=== PATIENT | male | born 1985 | race African-American/Black ===

== ENCOUNTER 2017-01-20 15:40 | Inpatient (IN) | payer OTHER ==
--- NOTE | ~2017-01-20 | HP ---
Unit #: [id number] #: [id number] Patient: JUAN J CARLIN [id number] [address] [place], [place] [address] [id number] MR#: [id number] NAME: JUAN J CARLIN. ROOM: 310 Age: 31 Sex: M Admission Date: 01/20/2017 : 1985 Attending Physician: Sumanth Lowe M.D. Referring Physician: Lesa Clemens M.D. Primary Care Physician: Lesa Clemens M.D. HISTORY AND PHYSICAL CHIEF COMPLAINT Unilateral headache, blurry vision, neck pain. HISTORY OF PRESENT ILLNESS The patient is a 31-year-old male with a past medical history of tobacco usage, essential hypertension - recently diagnosed, morbidly obese who presented to [facility] facility due to symptoms of unilateral headache on the right side behind the right eye, temporal, as well as in the occipital region, as well as symptoms of neck pain and blurry vision. The patient tells me that symptoms started about a week ago. The patient has been on atenolol 25 mg orally daily as started by his primary care physician back in August and tells me that he is about 50% compliant with his blood pressure medicine. When seen in the emergency department, he was changed from atenolol 25 mg to Toprol XL 50 mg orally daily. He tells me that, after he was discharged and the blood pressure medicine was changed, he had only recently gotten it filled in the last couple of days and has been taking it, but his symptoms have been persistent. Therefore, he came back to the emergency department there to be reevaluated for his persistent headache and blurry vision. The patient tells me that he had been wearing glasses for a long time but had never had a dilated eye exam. The patient denies any other neurological symptoms, including limb numbness, paralysis, slurred speech, dysarthria, aphasia. When assessed at [facility], the patient's blood pressure was noted to be 172/119. An attempt was done to get a head CT, but due to his weight, was not able to do so. At this time, the patient does deny all other symptoms, including chest pain, dyspnea, nausea, vomiting, diaphoresis. PAST MEDICAL HISTORY 1. Essential hypertension. 2. Morbid obesity. PAST SURGICAL HISTORY None. HOME MEDICATIONS He was on atenolol 25 mg orally daily and was recently changed to Toprol XL 50 mg orally daily. ALLERGIES Penicillin. NOTE: He was told as a child, so he does not know the reaction. Unit #: [id number] #: [id number] Patient: JUAN J CARLIN A SOCIAL HISTORY The patient lives with his fiance. Admits to smoking but tells me that he had quit drinking alcohol about a month ago, and he admits to drinking 2 beers every day. Denies any other illicit drugs; specifically, denies any IV drug use. FAMILY HISTORY Father had brain aneurysm and stroke at 70 years old. Mother's side of family positive for essential hypertension. PHYSICAL EXAMINATION VITAL SIGNS: Vitals here include temperature of 97.4, pulse 80, respiratory rate of 18, blood pressure 164/114. GENERAL: The patient is an male sitting in a chair in no acute distress. HEAD: Atraumatic, normocephalic. EENT: Pupils are equal, round and reactive to light and accommodation. Extraocular movements are intact. NECK: Supple. No JVD. LUNGS: Clear to auscultation bilaterally. No rhonchi. No wheezing. HEART: Regular rate and rhythm. ABDOMEN: Soft. Positive bowel sounds. EXTREMITIES: No cyanosis. No clubbing. No pitting edema. NEUROLOGIC: Awake, alert, oriented. No gross focal motor deficits noted. DIAGNOSTIC STUDIES LABS: Labs from [facility] - Sodium 137, potassium 4.5, chloride 102, CO2 28, glucose 107, BUN 15, creatinine 1.03, calcium 9.5, total protein 8.3, albumin 4.5, total bilirubin 0.5, alkaline phosphatase 93, AST 20, ALT 23. CBC with WBC of 5.2, RBC 5.49, hemoglobin 16.1, hematocrit 46.8%, MCV 58.3, MCH 29.4, MCHC 34.4, platelets 302, MPV 7.9, RDW 14%. CARDIOVASCULAR: I have noted his EKG. It is normal sinus rhythm. No ST elevation or depression. Rate of 75. ASSESSMENT AND PLAN 1. Hypertensive emergency with blurry vision. Will attempt to manage his blood pressure better. I am increasing his Toprol XL to 100 mg orally daily and hydralazine as needed. As well, will consider addition of other medications throughout the progress of the hospitalization. 2. For the unilateral headache, will (1) head CT. 3. Morbid obesity. Encourage weight loss. 4. Smoking. Stress cessation. Dictated by Veronique Rogers PA-C for Monty Stephen/shira TD: 01/20/2017 16:12 JOB #: [id number] Unit #: [id number] #: [id number] Patient: JUAN J CARLIN HISTORY AND PHYSICAL Page 1 of 1 X X HISTORY AND PHYSICAL
--- NOTE | ~2017-01-20 | DS ---
Unit #: [id number] #: [id number] Patient: JUAN J CARLIN [id number] [address] [place], [place] [address] [id number] I MR#: [id number] NAME: JUAN J CARLIN. ROOM: 310 Age: 31 Sex: M Admission Date: 01/20/2017 : 1985 Discharge Date: 01/21/2017 Attending Physician: Sumanth Lowe M.D. Referring Physician: Lesa Clemens M.D. Primary Care Physician: Lesa Clemens M.D. DISCHARGE SUMMARY DISCHARGE DIAGNOSES 1. Hypertensive emergency due to noncompliance. 2. headache. Head CT was negative. 3. Morbidly obese. 4. Smoker and tobacco usage. CONSULTANTS None. PROCEDURES None. DIAGNOSTIC STUDIES IMAGING STUDIES: Head CT without contrast done on 01/20/2017; impression, negative noncontrast head CT. LABORATORY RESULTS: On the date of discharge, the patient's labs; glucose of 96, BUN 12, creatinine 0.9, sodium 135, potassium 4.4, chloride 102, CO2 of 24, calcium 9.7, magnesium 2.0. When assessed his cardiac enzymes, all undetectable. When assessed his fasting lipid profile, total cholesterol is 136, triglycerides 60, LDL of 96, HDL of 28. When assessed TSH, it was 4.0, free T4 was 0.91. CBC with a WBC of 5.4, RBC of 5.42, hemoglobin is 13.5, hematocrit is 47.2, MCV 87.1, MCH is 28.6, MCHC 32.8, RDW 14.1, platelet is 287, MPV is 8.2. HOSPITAL COURSE The patient is a pleasant 31-year-old male with past medical history of tobacco usage; essential hypertension, which is recently diagnosed; and morbidly obese, who presents to [facility] due to symptoms of , temporal, occipital region headache as well as neck pain and blurred vision. The patient states symptoms had started about a week ago. He has been on atenolol 25 mg orally daily, started by his primary physician back in August compliant with his blood pressure medicine. When he was seen in the emergency department, his atenolol 25 mg was changed to Toprol-XL 50 mg orally daily. He recently had a pill, but has only had a couple of days of it. Due to his persistent headache, he went back to the emergency department to be evaluated. Due to his morbidly obese and significant size, CT was unable to be performed. Therefore, he was transferred to [facility] for bariatric CT head as well as any other speciality input if necessary with hypertensive emergency. This has been improved with adjustment of his Toprol-XL to 100 mg orally daily as well as the addition of lisinopril 10 mg, hydrochlorothiazide 12.5 mg each Unit #: [id number] #: [id number] Patient: JUAN J CARLIN orally daily. At this time, the patient tells me that his headache has been much improved with the Fioricet that has been utilized as needed. Head CT has been negative. The patient has no other focal deficits. His blurry vision has resolved, he tells me at this time. I have stressed the patient the need to have a dilated eye exam by either an ophthalmetrist or an lift team technician. He voiced understanding. His blood pressure has been stable. Therefore, he is stable to be discharged home. DISCHARGE FOLLOWUP Follow up with his primary care physician within 1 to 2 weeks. Please arrange for an outpatient dilated eye exam either by an ophthalmetrist or an lift team technician. ACTIVITIES Resume activities as was prior to hospitalization with ambulating every day as tolerated. DIET Heart healthy diet. DISCHARGE MEDICATIONS Include Zestoretic 10/12.5 mg one tablet orally daily; Toprol-XL 50 mg orally daily; Fioricet 1 tablet every 6 hours as needed for headache, given him a prescription for 24. Dictated by... Veronique Rogers PA-C for Monty Stephen/janice TD: 01/22/2017 07:44 JOB #: [id number] DISCHARGE SUMMARY Page 1 of 1 X X DISCHARGE SUMMARY
--- NOTE | ~2017-01-20 | A ---
[facility] Nutrition Therapy DATE: 01/21/17 Patient: JUAN J CARLIN Physician: JOE Address: [address] [facility] Room/Bed: [address] [place] [address], Zip: [place] [address] Admit Date: 01/20/17 Date of : [birth year] Height: 6 3 Weight: 473 215 NUTRITIONAL ASSESSMENT: REASON: Consult for HHD education, High BMI documentation Anthropometrics: Ht: 6'3" wt: 215 kg BMI: 59.2 Assessment: RD received consult to provide heart healthy diet education. RD spoke with the pt at bedside. Pt was very pleasant, voiced desire to make dietary changes, and admitted that he is not sure where to start. RD provided extensive heart healthy/ weight loss diet education, suggesting ways that the pt can make small, attainable changes. RD agreed and asking questions throughout the conversation. RD provided printed materials for the pt's reference, and encouraged him to contact RD with any questions. RD to remain available. Recommendations: 1. Pt to follow a heart healthy diet as instructed by RD. 2. Pt would benefit from seeing an outpatient RD for continued education and accountability. Please consult RD for any further nutritional needs. Respectfully, BRENNON MIRANDA RD, LD Food and Nutritional Services [facility] cc: client file
--- NOTE | ~2017-01-20 | CT71 ---
[facility] A Service of [facility] RADIOLOGY TEXT RESULTS PATIENT: JUAN J CARLIN LOCATION: [facility] 310- : [birth year] UNIT #: [id number] AGE: [address]: Sumanth Lowe MD SEX: M ORDER DR: [id number] [facility]. [place], [place] [address] [id number] I MR#: [id number] Acc #: [id number] NAME: JUAN J CARLIN : 1985 SEX: M STUDY DATE/TIME: 01/20/2017 17:36 UNIT: [address] ROOM: [facility] STUDY DESCRIPTION: CT Head Wo Contrast Attending Physician: Sumanth Lowe M.D. Referring Physician: Lesa Clemens M.D. Ordering Physician: Sumanth Lowe M.D. Primary Care Physician: Lesa Clemens M.D. MEDICAL IMAGING REPORT This report is preliminary unless electronic signature is present EXAM Noncontrast head CT. HISTORY 31-year-old male admitted with hypertensive emergency, unilateral headache, blurred vision, neck pain since 12/2016. TECHNIQUE This CT exam was performed with one or more of the following radiation dose reduction techniques: Automatic exposure control, adjustment of mA and/or kV according to patient size, and iterative reconstruction. FINDINGS Axial noncontrast imaging of the brain demonstrates the brain parenchyma to be normal. No evidence of mass, mass effect or midline shift. No hemorrhage or abnormal extraaxial fluid collection. The ventricles, sulci and basilar cisterns appear normal. Bony calvarium, skull base, mastoids and sinuses unremarkable except for a small mucous retention cyst left posterior ethmoid sinus. IMPRESSION Negative noncontrast head CT. Dictated by... Sav Reagan M.D. THIS IS AN ELECTRONICALLY VERIFIED REPORT Sav Reagan M.D. at 01/22/2017 12:28 PM KAT/aurora TD: 01/21/2017 06:27 JOB #: [id number] [facility] A Service of [facility] RADIOLOGY TEXT RESULTS PATIENT: JUAN J CARLIN LOCATION: [facility] 310-01 : [birth year] UNIT #: [id number] AGE: [address]: Sumanth Lowe MD SEX: M ORDER DR: MEDICAL IMAGING REPORT Page 1 of 1 COPY
[2017-01-20] MEDS ORDERED: TOPROL XL 50 MG50 MG PO (16:29)
[2017-01-20 19:00] LABS: FREE THYROXIN (T4) 0.91 ng/dL (0.58-1.64)
[2017-01-21 07:24] LABS: HEMATOCRIT 47.2 % (38.0-50.0); HEMOGLOBIN 15.5 gm/dL (13.0-16.0); MEAN CELL VOLUME 87.1 FL (83-96); MEAN CORPUSCULAR HEMOGLOBIN 28.6 PG (28-34); MEAN CORPUSCULAR HGB CONC 32.8 g/dL (30-36); MEAN PLATELET VOLUME 8.2 FL (6.5-11.5); RED BLOOD COUNT 5.42 X10e (3.90-5.60); RED CELL DISTRIBUTION WIDTH 14.1 % (11.0-15.5); WHITE BLOOD COUNT 5.4 X10e3 (4.0-10.5)
[2017-01-21 08:09] LABS: BUN/CREATININE RATIO 13.33; CALCIUM SERUM 9.7 mg/dL (8.4-10.2); CREATININE SERUM 0.9 mg/dL (0.6-1.4); GLOM FILT RATE Estimated 129.6 mL/min (>60); POTASSIUM 4.4 mmol/L (3.5-5.1)
[2017-01-21 09:03] LABS: %MB 1.6 % (0.0-4.0); MB 1.2 ng/ml
[2017-01-21] MEDS ORDERED: FIORICET1 TAB PO (14:11)
[2017-01-21] MEDS ORDERED: LISINOPRIL-HCTZ1 T18 PO (14:11)
== END 2017-01-21 16:15 | disposition home or self-care (01) | DRG 305 ==
LOC: C3A PCU 15:40
PROVIDERS: Internal Medicine
DX: I16.1 Hypertensive emergency (principal); Z68.43 Body mass index [BMI] 50.0-59.9, adult; I10 Essential (primary) hypertension; Z91.14 Patient's other noncompliance with medication regimen; E66.01 Morbid (severe) obesity due to excess calories; Z88.0 Allergy status to penicillin; Z79.899 Other long term (current) drug therapy; F17.210 Nicotine dependence, cigarettes, uncomplicated
CPT/HCPCS: 70450; 80048; 80061; 82550; 82553; 83735; 84439; 84443; 84484; 85027; J0360